=== PATIENT | female | born 1965 | race Caucasian/White ===

== ENCOUNTER → 2017-04-28 | Outpatient (CLI) | payer OTHER ==
[~2017-04-28] MED LIST: ATARAX25 MG PO; Lidex 0.05% Oin15 GM T; PREDNICOT20 MG PO
== END | disposition home or self-care (01) ==
LOC: US 08:44
DX: R10.11 Right upper quadrant pain (principal)

== ENCOUNTER → 2020-01-24 | Outpatient (CLI) | payer BC | END | disposition home or self-care (01) | LOC: COVID19 09:46 | PROVIDERS: ATTEND Nurse Practitioner Family | DX: Z20.828 Contact with and (suspected) exposure to other viral communicable diseases (principal) ==

== ENCOUNTER 2022-01-23 05:37 | Emergency (ER) | payer BC ==
[~2022-01-23] VITALS: Ht 162.5 cm; Wt 68.0 kg
[2022-01-23] MEDS ORDERED: PREDNISONE10 M1 PO (07:37)
[2022-01-23] MEDS ORDERED: WAL-DRYL25 MG PO (07:37)
== END 2022-01-23 07:50 | disposition home or self-care (01) ==
LOC: ED 05:37
DX: T78.49XA Other allergy, initial encounter (principal); Y92.89 Other specified places as the place of occurrence of the external cause

== ENCOUNTER → 2024-02-09 | Outpatient (CLI) | payer BC ==
[~2024-02-09] MED LIST changes: +PREDNISONE10 M1 PO; +WAL-DRYL25 MG PO
== END | disposition home or self-care (01) ==
LOC: US 08:30
PROVIDERS: ATTEND Nurse Practitioner Family
DX: R19.00 Intra-abdominal and pelvic swelling, mass and lump, unspecified site (principal)

== ENCOUNTER 2024-02-25 12:03 | Emergency (ER) | payer BC ==
[~2024-02-25] VITALS: Ht 160 cm; Wt 63.5 kg
[2024-02-25] MEDS ORDERED: SODIUM CHLORIDE 0.9% 500 ML IV ONE (12:35)
[2024-02-25] MEDS ORDERED: Ondansetron Hydrochloride 4 MG/2 ML VIAL IV ONE (12:35)
[2024-02-25 12:46] LABS: BASO # 0.1 10*3/uL (0.0-0.1); BASO % 0.6 % (0.0-1.0); EOS # 0.2 10*3/uL (0.0-0.4); HEMATOCRIT 41.8 % (37.0-47.0); MEAN CELL VOLUME 91.5 fl (81.0-99.0); MEAN CORPUSCULAR HGB 28.9 pg (27.0-31.0); MEAN CORPUSCULAR HGB CONC 31.6 g/dl (33.0-37.0); MEAN PLATELET VOLUME 9.3 fl (9.6-12.3); MONO # 0.6 10*3/uL (0.1-1.0); MONO % 7.7 % (3.0-9.0); NEUT # 4.1 10*3/uL (2.3-7.9); NEUT % 49.9 % (47.0-73.0); PLATELET COUNT AUTOMATED 306 10*3/uL (130-400); RED BLOOD COUNT 4.57 10*6/uL (4.10-5.10); RED CELL DISTRI WIDTH 13.1 % (0-14.5); WHITE BLOOD COUNT 8.1 10*3/uL (4.8-10.8)
[2024-02-25] MEDS ORDERED: IOHEXOL 300 MG/ML 100 ML VIAL IV ONE (13:00)
[2024-02-25 13:08] LABS: ALKALINE PHOSPHATASE 95 U/L (46-116); BUN 12 mg/dl (9-23); CHLORIDE 104 mmol/L (98-107); LIPASE 40 U/L (12-53); SGPT/ALT 21 U/L (5-49); TOTAL PROTEIN 7.6 gm/dL (6.0-8.0)
== END 2024-02-25 15:08 | disposition home or self-care (01) ==
LOC: ED 12:03
PROVIDERS: Internal Medicine
DX: N83.209 Unspecified ovarian cyst, unspecified side (principal); R11.2 Nausea with vomiting, unspecified; F17.200 Nicotine dependence, unspecified, uncomplicated; Z88.1 Allergy status to other antibiotic agents; Z88.0 Allergy status to penicillin; Z98.890 Other specified postprocedural states

== ENCOUNTER → 2024-07-12 | Outpatient (CLI) | payer BC | END | disposition home or self-care (01) | LOC: CT 00:53 | PROVIDERS: ATTEND Nurse Practitioner Family | DX: R10.32 Left lower quadrant pain (principal); R91.1 Solitary pulmonary nodule ==